=== PATIENT | female | born 1965 | race Caucasian/White ===

== ENCOUNTER 2017-03-20 12:52 | Emergency (ER) | payer BC ==
[2017-03-20 13:25] VITALS: BP 119/74
--- NOTE | 2017-03-20 13:44 | UC ---
Back Pain HPI - HPI Summary HPI Summary: 51 yo female states she has had 10/10 low back pain for about one month despite being 10/10 it does not bother her much and she has been able to work no bowel/bladder dysfunction no f/c no UTI symptoms now has had a one week hx of constant right leg pain down to feet - History of Current Complaint Chief Complaint: UCBackPain Stated Complaint: LOW BACK PAIN DOWN RIGHT LEG Time Seen by Provider: 03/20/17 13:07 Hx Obtained From: Patient Hx Last Menstrual Period: 02/27/17 Onset/Duration: Gradual Onset, Lasting Weeks Timing: Constant Severity Initially: Severe Severity Currently: Severe Pain Intensity: 10 Pain Scale Used: 0-10 Numeric Back Pain: Is Diffuse, Radiates To - right leg Character: Aching, Throbbing Aggravating: Bending Alleviating: Nothing Associated Signs And Symptoms: Positive: Negative - Allergies/Home Medications Allergies/Adverse Reactions: Allergies Allergy/AdvReac Type Severity Reaction Status Date / Time No Known Allergies Allergy Verified 03/20/17 13:15 Home Medications: Home Medications Atorvastatin* [Lipitor 20 MG*] 20 mg PO QPM 03/20/17 [History Confirmed 03/20/17 ] FLUoxetine* [Prozac*] 20 mg PO DAILY 03/20/17 [History Confirmed 03/20/17] Ferrous Sulfate [Iron (Ferrous Sulfate)] 50 mg PO DAILY 03/20/17 [History Confirmed 03/20/17] Omeprazole CAP* [Prilosec CAP* 20 MG] 20 mg PO DAILY 03/20/17 [History Confirmed 03/20/17] Oral Contraceptive 1 tab PO DAILY 03/20/17 [History] PMH/Surg Hx/FS Hx/Imm Hx Previously Healthy: Yes Endocrine History: Dyslipidemia - Surgical History Surgical History: Yes Surgery Procedure, Year, and Place: - Family History Known Family History: Negative: Cardiac Disease, Hypertension, Diabetes - Social History Alcohol Use: None Substance Use Type: None Smoking Status (MU): Former Smoker Type: Cigarettes When Did the Patient Quit Smoking/Using Tobacco: 15 YRS AGO Review of Systems Constitutional: Negative Skin: Negative Eyes: Negative ENT: Negative Respiratory: Negative Cardiovascular: Negative Gastrointestinal: Negative Genitourinary: Negative Motor: Negative Neurovascular: Negative Musculoskeletal: Myalgia Neurological: Negative Psychological: Negative All Other Systems Reviewed And Are Negative: Yes Physical Exam Triage Information Reviewed: Yes Appearance: Well-Appearing, No Pain Distress, Well-Nourished Vital Signs: Initial Vital Signs Temp 98.5 F 03/20/17 13:18 Pulse 61 03/20/17 13:18 Resp 16 03/20/17 13:18 BP 119/74 03/20/17 13:18 Pulse Ox 100 03/20/17 13:18 Eyes: Positive: Conjunctiva Clear ENT: Positive: Hearing grossly normal. Negative: Nasal congestion, Nasal drainage, Trismus, Muffled/hoarse voice Neck: Positive: Supple, Nontender Respiratory: Positive: Lungs clear, Normal breath sounds, No respiratory distress, No accessory muscle use, Respiratory distress Cardiovascular: Positive: RRR, No Murmur Musculoskeletal: Positive: ROM Intact, No Edema Neurological: Positive: Alert, Other: - (+) SLR on right at 45 degrees Psychological Exam: Normal Skin Exam: Normal Back Pain Course/Dx - Differential Dx/Diagnosis Provider Diagnoses: acute right sciatica Discharge - Discharge Plan Condition: Stable Disposition: HOME Prescriptions: Methylprednisolone [Medrol Dosepak 4 MG*] 0 mg PO .SEE DOROTEO INSTRUCTION #1 tab Naproxen Sodium [Naproxen Sodium 500 MG TAB] 500 mg PO BID PRN #30 tab PRN Reason: Pain Patient Education Materials: Sciatica (ED) Additional Instructions: please make a follow up appt with your physician you may need an MRI of your lumbar spine if things worsen or persist Images Front/Back of Body, Lg ([place]): 1 - pain 2 - radiation
== END 2017-03-20 13:57 | disposition home or self-care (01) ==
LOC: UCCORT 12:52
DX: M54.31 Sciatica, right side (principal); E78.5 Hyperlipidemia, unspecified; Z87.891 Personal history of nicotine dependence
CPT/HCPCS: 99202; G0463

== ENCOUNTER 2017-07-24 15:58 | Emergency (ER) | payer BC ==
--- NOTE | 2017-07-24 16:09 | UC ---
Back Pain HPI - HPI Summary HPI Summary: 52 year old female presents with complains of right sided back pain. - History of Current Complaint Stated Complaint: BACK PAIN Time Seen by Provider: 07/24/17 16:08 Hx Obtained From: Patient Hx Last Menstrual Period: 02/27/17 Onset/Duration: Sudden Onset Severity Initially: Moderate Severity Currently: Moderate Pain Scale Used: 0-10 Numeric - 7 Character: Sharp Aggravating Factor(s): Movement, Lifting, Bending - Allergies/Home Medications Allergies/Adverse Reactions: Allergies Allergy/AdvReac Type Severity Reaction Status Date / Time No Known Allergies Allergy Verified 07/24/17 16:17 Home Medications: Home Medications Levothyroxine Sodium [Synthroid] 88 mcg PO 07/24/17 [History] Norgestimate-Ethinyl Estradiol [Tri-Linyah] 1 tab PO 07/24/17 [History Confirmed 07/24/17] PMH/Surg Hx/FS Hx/Imm Hx Previously Healthy: Yes - Surgical History Surgical History: Yes Surgery Procedure, Year, and Place: - Family History Known Family History: Negative: Cardiac Disease, Hypertension, Diabetes - Social History Alcohol Use: None Substance Use Type: None Smoking Status (MU): Former Smoker Type: Cigarettes When Did the Patient Quit Smoking/Using Tobacco: 15 YRS AGO Review of Systems Constitutional: Negative Skin: Negative Eyes: Negative ENT: Negative Respiratory: Negative Cardiovascular: Negative Gastrointestinal: Negative Genitourinary: Negative Motor: Negative Neurovascular: Negative Musculoskeletal: Other: - right sided lower back pain Neurological: Negative Psychological: Negative All Other Systems Reviewed And Are Negative: Yes Physical Exam Triage Information Reviewed: Yes Vital Signs Reviewed: Yes Eye Exam: Normal ENT Exam: Normal Dental Exam: Normal Neck exam: Normal Neck: Positive: 1 Respiratory Exam: Normal Cardiovascular Exam: Normal Abdominal Exam: Normal Musculoskeletal: Positive: Other: - right sided lower back pain Neurological Exam: Normal Psychological Exam: Normal Skin Exam: Normal Back Pain Course/Dx - Differential Dx/Diagnosis Provider Diagnoses: rightsided SI joint pain Discharge - Discharge Plan Condition: Stable Disposition: HOME Prescriptions: Meloxicam [Mobic] 7.5 mg PO BID PC #30 tab Methocarbamol TAB* [Robaxin 500 MG TAB*] 500 mg PO TID PRN #30 tab PRN Reason: Spasms Patient Education Materials: Sacroiliitis (ED) Referrals: [facility] [place] Physical therapy,PT [Medical Doctor] - Deandre MARTINES,Kathya [Primary Care Provider] -
[2017-07-24 16:17] VITALS: BP 114/67
== END 2017-07-24 16:40 | disposition home or self-care (01) ==
LOC: UCCORT 15:58
DX: M46.1 Sacroiliitis, not elsewhere classified (principal)
CPT/HCPCS: 99212; G0463

== ENCOUNTER 2019-09-01 10:09 | Emergency (ER) | payer BC ==
[2019-09-01 11:15] VITALS: BP 125/83
--- NOTE | 2019-09-01 12:08 | UC ---
Throat Pain/Nasal [place] HPI - HPI Summary HPI Summary: 54-year-old female who complains of sore throat over the past 2 weeks. She also has seasonal allergies. She denies any fever or chills. She is a nonsmoker. - History of Current Complaint Chief Complaint: UCRespiratory Stated Complaint: ST Time Seen by Provider: 09/01/19 11:45 Hx Obtained From: Patient Hx Last Menstrual Period: 02/27/17 ?: No Onset/Duration: Gradual Onset Severity: Mild Pain Intensity: 9 Cough: None Associated Signs & Symptoms: Positive: Negative - Allergies/Home Medications Allergies/Adverse Reactions: Allergies Allergy/AdvReac Type Severity Reaction Status Date / Time amoxicillin [From Augmentin] Allergy Hives Verified 09/01/19 11:09 clavulanic acid Allergy Hives Verified 09/01/19 11:09 [From Augmentin] PMH/Surg Hx/FS Hx/Imm Hx Previously Healthy: Yes - Surgical History Surgical History: Yes Surgery Procedure, Year, and Place: - Family History Known Family History: Negative: Cardiac Disease, Hypertension, Diabetes - Social History Alcohol Use: None Alcohol Amount: RECOVERED ETOH Substance Use Type: None Smoking Status (MU): Former Smoker Type: Cigarettes When Did the Patient Quit Smoking/Using Tobacco: 15 YRS AGO Review of Systems All Other Systems Reviewed And Are Negative: Yes ENT: Positive: Sore Throat, Nasal Discharge Is Patient Immunocompromised?: No Physical Exam Triage Information Reviewed: Yes Appearance: Well-Appearing, No Pain Distress, Well-Nourished Vital Signs: Initial Vital Signs Temp 97.8 F 09/01/19 11:11 Pulse 77 09/01/19 11:11 Resp 16 09/01/19 11:11 BP 125/83 09/01/19 11:11 Pulse Ox 99 09/01/19 11:11 Vital Signs Reviewed: Yes Eyes: Positive: Conjunctiva Clear ENT: Positive: Pharynx normal, Nasal congestion, TMs normal, Uvula midline Neck: Positive: Supple, Nontender, No Lymphadenopathy Respiratory: Positive: Lungs clear, Normal breath sounds, No respiratory distress, No accessory muscle use Cardiovascular: Positive: RRR, No Murmur, Pulses Normal, Brisk Capillary Refill Musculoskeletal Exam: Normal Neurological Exam: Normal Psychological Exam: Normal Skin Exam: Normal Throat Pain/Nasal Course/Dx - Course Course Of Treatment: Rapid strep negative - Differential Dx/Diagnosis Provider Diagnosis: Pharyngitis Discharge ED - Sign-Out/Discharge Documenting (check all that apply): Patient Departure All imaging exams completed and their final reports reviewed: No Studies - Discharge Plan Condition: Good Disposition: HOME Patient Education Materials: Pharyngitis (ED) Referrals: Tiana Wall NP [Primary Care Provider] - Additional Instructions: Increase fluids, warm saltwater gargles, throat lozenges. Follow up with your primary care provider in 4 or 5 days if no improvement. - Billing Disposition and Condition Condition: GOOD Disposition: Home
== END 2019-09-01 12:16 | disposition home or self-care (01) ==
LOC: UCCORT 10:09
DX: J02.9 Acute pharyngitis, unspecified (principal); Z88.0 Allergy status to penicillin; Z87.891 Personal history of nicotine dependence
CPT/HCPCS: 87651; 99211; G0463